=== PATIENT | male | born 1990 | race Caucasian/White ===

== ENCOUNTER 2022-10-25 18:11 | Emergency (ER) | payer BC, OTHER ==
[~2022-10-25] VITALS: Ht 167.6 cm; Wt 86.2 kg
[2022-10-25 18:11] VITALS: BP_SYST 127
[~2022-10-25 18:11] MED LIST: HYDR-3917 PO; IBUP-1969 PO
--- NOTE | 2022-10-25 18:12 | NUR ---
BROUGHT BACK TO BED #4 AND TRIAGED. REPORT GIVEN TO EMILI
[2022-10-25] MEDS ORDERED: LIDOCAINE/EPI 1% 1:100000 20 ML VIAL INJ ONE (18:30)
--- NOTE | 2022-10-25 18:35 | NUR ---
32yo M here for abscess to 1 week. Does not know how it started. Denies fever. Pt c abscess over R clavicle and posterior L neck. Denies fever. History of type 1 DM
[2022-10-25 18:37] VITALS: BP_SYST 127
--- NOTE | 2022-10-25 18:55 | NUR ---
Dr Bronson at bedside for I&D of abscesses
[2022-10-25] MEDS ORDERED: SULF1TAB48 PO (19:04)
--- NOTE | 2022-10-25 19:26 | NUR ---
Patient given written and verbal discharge instructions and verbalizes understanding. ER MD discussed with patient the results and treatment provided. Patient in stable condition. ID arm band removed. Rx of Bactrim given. Patient educated on pain management and to follow up with PMD. Pain Scale 0. Opportunity for questions provided and answered. Medication side effect fact sheet provided.
== END 2022-10-25 19:26 | disposition home or self-care (01) ==
LOC: SED 18:11
DX: L02.11 Cutaneous abscess of neck (principal); L03.221 Cellulitis of neck; E10.9 Type 1 diabetes mellitus without complications; Z79.899 Other long term (current) drug therapy
CPT/HCPCS: 99283; 99284